=== PATIENT | male | born 1995 | race Caucasian/White ===

== ENCOUNTER 2023-06-19 21:32 | Outpatient (REF) | payer MEDICAID, SELFPAY ==
[2023-06-19 22:19] LABS: Abs Immature Grans 0.86 10^3/uL (0.0-0.06); HCT 30.2 % (40.0-50.0); HGB 10.5 g/dL (13.5-17.5); MCH 32.9 pg (27.0-33.0); MCHC 34.8 % (32.0-36.0); MCV 95 fL (80-95); MPV 10.9 fL (8.0-11.0); Platelet Count 299 10^3/uL (130-400); RBC 3.19 10^6/uL (4.36-5.78); RDW 17.7 % (11.8-14.1); RDW-SD 61.7 fL; WBC 20.74 10^3/uL (4.4-10.8)
[2023-06-19 22:53] LABS: ALT 28 U/L (16-63); AST 106 U/L (15-37); Albumin 1.7 g/dL (3.4-5.0); Alkaline Phosphatase 176 U/L (46-116); Anion Gap 10.9 mmol/L (3-11); BUN 34 mg/dL (7-18); CO2 22.1 mmol/L (21.0-32.0); Calcium 8.3 mg/dL (8.5-10.1); Chloride 88 mmol/L (98-107); Estimated GFR 46.34 (mL/min/1.73m2); Glucose 108 mg/dL (74-106); Potassium 4.6 mmol/L (3.5-5.1); Total Protein 5.9 g/dL (6.4-8.2)
[2023-06-19 23:28] LABS: Absolute Eosinophil Count 0.41 10^3/uL (0.0-0.7); Absolute Lymphocyte Count 2.28 10^3/uL (1.2-3.4); Absolute Monocyte Count 1.87 10^3/uL (0.1-0.8); Absolute Neutrophil Count 15.56 10^3/uL (1.2-6.7); Atypical Lymphocytes % 0; Bands % 3; Metamyelocytes % 1; Myelocytes % 2
[2023-06-19 23:29] LABS: Diff Comment Manual Differential; RBC Morphology Normal
[2023-06-19 23:49] LABS: Sodium 121 mmol/L (136-145)
== END 2023-06-19 21:33 | disposition home or self-care (01) ==
LOC: LBN 21:32
PROVIDERS: Visit Provider Family Medicine
DX: K70.11 Alcoholic hepatitis with ascites (principal)
CPT/HCPCS: 80053; 85025

== ENCOUNTER 2023-07-03 21:58 | Outpatient (REF) | payer MEDICAID, SELFPAY ==
[2023-07-04 01:19] LABS: HCT 30.2 % (40.0-50.0); HGB 10.2 g/dL (13.5-17.5); MCH 31.4 pg (27.0-33.0); MCHC 33.8 % (32.0-36.0); MCV 93 fL (80-95); MPV 11.3 fL (8.0-11.0); Platelet Count 270 10^3/uL (130-400); RBC 3.25 10^6/uL (4.36-5.78); RDW-SD 54.1 fL; WBC 19.65 10^3/uL (4.4-10.8)
[2023-07-04 01:35] LABS: ALT 20 U/L (16-63); AST 83 U/L (15-37); Albumin 1.4 g/dL (3.4-5.0); Alkaline Phosphatase 231 U/L (46-116); BUN 18 mg/dL (7-18); CO2 23.2 mmol/L (21.0-32.0); CREATININE 1.4 mg/dL (0.70-1.30); Chloride 90 mmol/L (98-107); Estimated GFR 71.09 (mL/min/1.73m2); Glucose 113 mg/dL (74-106); Potassium 3.4 mmol/L (3.5-5.1)
[2023-07-04 01:46] LABS: Anion Gap 11.8 mmol/L (3-11)
[2023-07-04 05:16] LABS: Sodium 125 mmol/L (136-145)
== END 2023-07-03 21:59 | disposition home or self-care (01) ==
LOC: LBN 21:58
PROVIDERS: Visit Provider Family Medicine
DX: K70.11 Alcoholic hepatitis with ascites (principal); N17.9 Acute kidney failure, unspecified; D64.9 Anemia, unspecified
CPT/HCPCS: 80053; 85027